=== PATIENT | female | born 1955 | race Caucasian/White ===

== ENCOUNTER → 2018-01-20 | Outpatient (CLI) | payer OTHER ==
[2015-02-13 11:01] VITALS: BMI 20.1
[~2018-01-20] MED LIST: ALPR-448; BUPR1PAT9; BUPR1PAT9 TD; CEPH-13 PO; CLONAZEPAM; COPAXONE; CYCL1DRO6; DRON5CAP15 PO; FING0.5C2 PO; FOSAMAX; GABA-547 PO; GABA-551; GABA-551 PO; HYDR-393; HYDR-393 PO; IMITREX; LACT1CAP64 PO; LEV125 PO; LEVO50TA86 PO; LOPE2CAP88 PO; MELA10CA PO; NEURONTIN; ONDA4TAB PO; PHEN100T27 PO; PROG100C PO; ROPI1TAB36 PO; ROPINIROLE PO; ST JOHN S WORT IO; ST.300CA17 PO; SUMA100T33; SUMA100T33 PO; TERI14TA PO; TOPAMAX; TOPI-28 PO; VANC125C10 GT; VICODIN; VITEX PO; [UNRECOGNIZED DRUG - CODE]; [UNRECOGNIZED DRUG - OTHER] PO
--- NOTE | 2018-01-20 11:34 | RADIOLOGY IMAGING REPORT ---
FACILITY: [facility] [place] PATIENT NAME: Alexa Huerta : 1955 MR: [id number] V: [id number] EXAM DATE: ORDERING PHYSICIAN: HANH HOBSON TECHNOLOGIST: Location: [facility] Patient: Alexa Huerta : 1955 Visit/Account:[id number] Date of Sevice: 01/20/2018 DEXA Scan HISTORY: Osteoporosis. COMPARISON: 01/18/2016. LUMBAR SPINE: The bone mineral density (BMD) measured from L1-L4 correlates with a Z-score 1.2 and a T-score of -1 .3 which is osteopenia as defined by the World Health Organization. The corresponding risk of fractu re in the lumbar spine is increased compared with a young adult reference population. This value has increased by 8.8 % since the prior study. More than 5% change is considered significant. HIP: Bone mineral density (BMD) measured in the left total hip region correlates with a Z-score -1.1 and a T-score of -2.2 which is osteopenia as defined by the World Health Organization. The corresponding risk of fracture in the hip is increased compared with a young adult reference population. This value has increased by 2.7 % since the prior study. More than 5% change is considered significant. Bone mineral density (BMD) measured in the Femoral Neck region measures 0.731 g/cm2. IMPRESSION: 1. Lumbar spine: Osteopenia. Lumbar bone mineral density has significantly increased by 8.8%. 2. Left Total Hip: Osteopenia.. No significant change 3. Femoral Neck: Bone Mineral Density is 0.731 g/cm2 The next DEXA scan of this patient should include the following sites: L1-L4 and the left hip. FRAX? WHO Fracture Risk Assessment Tool link: <http://www.shef.ac.uk/FRAX/tool.jsp?locationValue=9> PLEASE NOTE: 1) The World Health Organization defines low BMD as follows: T-score Normal > -1 Osteopenia < -1 and > -2.5 Osteoporosis < -2.5 without fractures Established osteoporosis < -2.5 with fractures 2) In general, you may wish to consider: Diagnosis Treatment Follow-up DEXA Normal BMD Prevention 2-3 years Osteopenia Prevention/therapy 1-2 years Osteoporosis Therapy Yearly 3) Fracture risk estimated from the T-score is more accurate for vertebral fractures (often spontane ous) than for hip fractures. Report Dictated By: Curt Mondragon MD at 01/20/2018 11:27 AM Report E-Signed By: Curt Mondragon MD at 01/20/2018 11:31 AM WSN:[id number]
--- NOTE | 2018-01-20 11:55 | RADIOLOGY IMAGING REPORT ---
FACILITY: [facility] [place] PATIENT NAME: COREY GAO : [id number] MR: [id number] V: [id number] EXAM DATE: ORDERING PHYSICIAN: HANH HOBSON TECHNOLOGIST: Carmela Mei PROCEDURE:BILATERAL DIGITAL SCREENING MAMMOGRAM WITH CAD ASSISTED INTERPRETATION & 3D TOMOSYNTHESIS COMPARISON:Prior mammograms 01/01/16 INDICATIONS:screening FINDINGS: Moderately dense fibroglandular tissue is seen throughout the breasts. The parenchymal pattern has remained stable allowing for difference in mammographic technique & patient positioning. There is no evidence of malignant appearing mass, malignant appearing calcifications or other secondary sign of malignancy in either breast. DIAGNOSTIC CATEGORY 1--NEGATIVE. RECOMMENDATIONS: ROUTINE MAMMOGRAM AND CLINICAL EVALUATION. IMPRESSION: BIRADS 1: Negative No significant abnormality is seen. Dictated by: Felicity Peace M.D. on 01/20/2018 at 10:49 Transcribed by: TERA on 01/20/2018 at 10:56 Approved by: Felicity Peace M.D. on 01/20/2018 at 11:54 [facility]
--- NOTE | 2018-01-20 13:47 | RADIOLOGY IMAGING REPORT ---
FACILITY: [facility] [place] PATIENT NAME: Alexa Huerta : 1955 MR: [id number] V: [id number] EXAM DATE: ORDERING PHYSICIAN: HANH HOBSON TECHNOLOGIST: Location: [facility] Patient: Alexa Huerta : 1955 Visit/Account:[id number] Date of Sevice: 01/20/2018 Exam type: SOFT TISSUE HEAD NECK History: Past history of thyroidectomy for papillary carcinoma Comparison: None. Findings: The patient is status post thyroidectomy. No abnormal mass lesions or abnormal lymphadenopathy is id entified in either the right or left side of the neck. If tumor recurrence or pathologic adenopathy remains of strong clinical concern a CT of the neck with contrast is recommended for further evaluati on IMPRESSION: 1. No abnormal mass lesion or pathologic-appearing adenopathy identified in the neck. If tumor recu rrence or pathologic adenopathy remains of strong clinical concern CT of the neck with contrast is re commended for further evaluation Report Dictated By: Felicity Peace MD at 01/20/2018 1:38 PM Report E-Signed By: Felicity Peace MD at 01/20/2018 1:42 PM WSN:[email or web address]
== END ==
LOC: MAMO 00:44
PROVIDERS: ATTEND Nurse Practitioner Family
DX: Z12.31 Encounter for screening mammogram for malignant neoplasm of breast (principal); M81.0 Age-related osteoporosis without current pathological fracture; C73 Malignant neoplasm of thyroid gland; M85.80 Other specified disorders of bone density and structure, unspecified site
CPT/HCPCS: 76536; 77063; 77067; 77080

== ENCOUNTER 2018-01-24 10:48 | Emergency (ER) | payer OTHER ==
[2015-02-13 11:01] VITALS: Wt 63.5 kg
--- NOTE | 2018-01-24 10:58 | ER Report ---
History and Physical Time Seen By MD: 10:57 HPI/ROS CHIEF COMPLAINT: Left eye pain HISTORY OF PRESENT ILLNESS: 62-year-old female patient presents to emergency room with complaint of left eye pain. Patient states that this started this morning when she woke up. She states that she was having so much pain that she had a hard time opening her eye. She states since then she's noticed that her eyes really sensitive to light, she states the left eye is very blurry as well. She states that she has not taken any medication for this. She denies any previous injury to the eye. She states that she typically sees the fire alarm technician at [facility]. REVIEW OF SYSTEMS: Respiratory: No cough, no dyspnea. Cardiovascular: No chest pain, no palpitations. Gastrointestinal: No vomiting, no abdominal pain. Musculoskeletal: Left thumb nodule with discomfort Allergies: Coded Allergies: Sulfa (Sulfonamide Antibiotics) (Verified Allergy, Severe, Facial/lip swelling, 02/13/15) sulfamethoxazole (Unverified Allergy, Unknown, 05/11/15) trimethoprim (Unverified Allergy, Unknown, 05/11/15) Uncoded Allergies: ANTI DEPRESSANT (Allergy, Mild, UNKNOWN, 03/14/14) Home Meds Reported Medications Levothyroxine Sodium (LEVOTHYROXINE SODIUM) 50 Mcg Tablet, 2 TAB PO QDAY, TAB 06/18/16 Teriflunomide (AUBAGIO) 14 Mg Tablet, 1 TAB PO QODAY 06/18/16 Gabapentin (GABAPENTIN) 400 Mg Capsule, 4 CAP PO HS, CAPSULE 06/18/16 Gabapentin (GABAPENTIN) 400 Mg Capsule, 1 CAP PO TID, CAPSULE 06/18/16 Acetaminophen/Hydrocodone (HYDROCODON-ACETAMINOPHN 10-325) 1 Each Tab, 1 EACH PO Q6H, TAB 05/11/15 Ropinirole Hcl (ROPINIROLE HCL) 1 Mg Tablet, 1 TAB PO TID 05/11/15 Buprenorphine (BUTRANS) 1 Each Patch.tdwk, 1 EACH TD QWEEK 02/05/15 Topiramate (TOPIRAMATE) 100 Mg Tablet, 1 TAB PO HS, #30 09/27/14 Dronabinol (DRONABINOL) 5 Mg Capsule, 1 CAP PO DAILY 09/27/14 Discontinued Reported Medications Sumatriptan Succinate (SUMATRIPTAN SUCCINATE) 100 Mg Tablet, 1 TAB PO PRN Y for PAIN 06/18/16 Progesterone,Micronized (PROGESTERONE) 100 Mg Capsule, 1 TAB PO DAILY, CAPSULE 06/18/16 Alprazolam 0.5 Mg Tab (ALPRAZOLAM 0.5 MG TAB) 0.5 Mg Tablet, 0.5 Y for ANXIETY, #0 09/27/14 Past Medical/Surgical History Patient has a past medical history of MS, fibromyalgia, migraines, arthritis, back pain, bilateral cataracts, depression, thyroid cancer. Patient has surgical history of thyroidectomy, cataract surgery, steroid injections. Reviewed Nurses Notes: Yes Hx Smoking: No Smoking Status: Never Smoker Exposure to Second Hand Smoke?: No Hx Substance Use Disorder: No Hx Alcohol Use: No Constitutional Vital Sign - Last 24 Hours 01/24/18 01/24/18 10:57 11:34 Temp 98.8 98.8 Pulse 74 74 Resp 16 16 B/P (MAP) 146/85 118/86 (97) Pulse Ox 94 97 O2 Delivery Room Air Physical Exam General Appearance: The patient is alert, has no immediate need for airway protection and no current signs of toxicity. Eyes: Pupils equal and round no injection. Extraocular movements intact. Loc- Pen was used to measure pressure and pressure was 15 in both eyes. Fluorescein exam was done of left eye and noticed that the patient has a C-shaped corneal abrasion just over her pupil. Respiratory: Chest is non tender, lungs are clear to auscultation. Cardiac: regular rate and rhythm Gastrointestinal: Abdomen is soft and non tender, no masses, bowel sounds normal. Musculoskeletal: Neck: Neck is supple and non tender. Patient has nodule located at the DIP joint of the left first finger, it is tender to the touch. There is no erythema noted. Extremities have full range of motion and are non tender. Skin: No rashes or lesions. DIFFERENTIAL DIAGNOSIS: After history and physical exam differential diagnosis was considered for corneal abrasion, acute angle glaucoma, iritis, tendinitis, cyst on tendon. Medical Decision Making ED Course/Re-evaluation ED Course Patient was admitted to an exam room, history and physical were obtained. Differential diagnoses were considered. On examination lungs are clear, heart is regular, patient had significant amount of difficulty with opening her eye, she had photophobia. Loc-Pen was used to collect intraocular pressure, pressures were 15 bilaterally. Fluorescein exam was done which showed a C- shaped abrasion over the pupil of the left eye. I discussed the findings with the patient. We'll go ahead and place her on antibiotic eyedrops with steroid, to help with the discomfort and help prevent infection. I suspect she will be healed up in the next several days. I would like her to follow-up with her fire alarm technician in the next 24-48 hours. Patient verbalized understanding and agreement with plan. Decision to Disposition Date: Jan 24, 2018 Decision to Disposition Time: 11:23 Depart Departure Latest Vital Signs Vital Signs Date Time Temp Pulse Resp B/P (MAP) Pulse Ox O2 Delivery O2 Flow Rate FiO2 01/24/18 11:34 98.8 74 16 118/86 (97) 97 01/24/18 10:57 Room Air Impression: Primary Impression: Cornea abrasion Condition: Improved Disposition: HOME OR SELF-CARE Referrals: HANH HOBSON (PCP) Patient Instructions: Corneal Abrasion (ED) Additional Instructions: Instill the eye drops; 2 drops four times a day. Follow up with your fire alarm technician tomorrow. Continue with current medications. I believe that this likely occurred last night while you were sleeping. Return to the ER if condition worsens. Problem Qualifiers Primary Impression: Cornea abrasion Encounter type: initial encounter Laterality: left Qualified Codes: S05.02XA - Injury of conjunctiva and corneal abrasion without foreign body, left eye, initial encounter SHANTHI LOERA Jan 24, 2018 10:58
[2018-01-24] MEDS ORDERED: PROPARACAINE 0.5% OP 15ML BTL OS ONE (11:05)
[2018-01-24] MEDS ORDERED: FLUORESCEIN SOD 1 MG 1 EA STRP OS ONE (11:05)
[2018-01-24] MEDS ORDERED: TOBRAMYCIN/DEX OP SUSP 2.5 ML OS ONE (11:20)
[2018-01-24 11:34] VITALS: BP 118/86
== END 2018-01-24 11:39 | disposition home or self-care (01) ==
LOC: ER 11:12
DX: S05.02XA Injury of conjunctiva and corneal abrasion without foreign body, left eye, initial encounter (principal)
CPT/HCPCS: 99283

== ENCOUNTER → 2018-02-18 | Outpatient (CLI) | payer OTHER ==
[2015-02-13 11:01] VITALS: BMI 20.1
[~2018-02-18] MED LIST changes: +BIOT1CAP PO; +CALC-965 PO; +ECHI80CA2 PO; +GLUC-198 PO; +SENN-187 PO; +UBIQ100C3 PO
--- NOTE | 2018-02-18 14:26 | RADIOLOGY IMAGING REPORT ---
FACILITY: [facility] PATIENT NAME: Alexa Huerta : 1955 MR: [id number] V: [id number] EXAM DATE: ORDERING PHYSICIAN: HANH HOBSON TECHNOLOGIST: Location: [facility] Patient: Alexa Huerta : 1955 Visit/Account:[id number] Date of Sevice: 02/18/2018 ADDENDUM #1 Bladder volume 116 mL Postvoid residual 11 mL Report Dictated By: Dylan Yao at 02/19/2018 4:55 PM Report E-Signed By: Dylan Yao at 02/19/2018 4:56 PM ORIGINAL REPORT KIDNEYS HISTORY: Urinary frequency COMPARISON: None. FINDINGS: Kidneys: Right kidney- 10.6 x 3.5 x 5.1 cm with normal parenchymal thickness and echogenicity. 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 Left kidney- 10.0 x 4.0 x 5.4 cm with normal parenchymal thickness and echogenicity. No ultrasound e vident renal mass lesion or stone. Uniform and symmetric blood flow in each kidney by Doppler ultrasound. Hydronephrosis: None. Bladder: Morphologically unremarkable. Bilateral ureteric jets visualized. . Abdominal aorta and IVC: Patent by Doppler ultrasound. IMPRESSION: Renal ultrasound is within normal limits. There is a 1.2 cm small hyperechoic nodule within the right mid pole cortex. 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
== END ==
LOC: US 00:57
PROVIDERS: ATTEND Nurse Practitioner Family
DX: N28.89 Other specified disorders of kidney and ureter (principal)
CPT/HCPCS: 76705

== ENCOUNTER 2018-03-16 15:04 | Outpatient (RCR) | payer OTHER ==
[2015-02-13 11:01] VITALS: BMI 20.1
[2018-03-17] MEDS ORDERED: IOPAMIDOL 76% 75 ML INFUS BTL 75 ML ONE (16:06)
--- NOTE | 2018-03-17 17:19 | RADIOLOGY IMAGING REPORT ---
FACILITY: [facility] PATIENT NAME: Alexa Huerta : 1955 MR: [id number] V: [id number] EXAM DATE: ORDERING PHYSICIAN: HANH HOBSON TECHNOLOGIST: Location: [facility] Patient: Alexa Huerta : 1955 Visit/Account:[id number] Date of Sevice: 03/17/2018 CT ABDOMEN WITH IV CONTRAST CLINICAL INFORMATION: Abdomen pain, epigastric pain TECHNIQUE: Axial CT images were obtained through the abdomen during injection of nonionic iodinated intravenous contrast. Reformatted coronal and sagittal images were also obtained. Dose Lowering Tech [place] One of the following dose optimization techniques was utilized in the performance of this exam: Autom ated exposure control; adjustment of the mA and/or kV according to the patient's size; or use of an i terative reconstruction technique. Specific details can be referenced in the facility's radiology C T exam operational policy. CONTRAST: 75 mL of Isovue 370 IV contrast. COMPARISON: February 12, 2015. FINDINGS: Lower lung wiley: Limited views lower lung field are unremarkable. Liver: Liver is markedly enlarged and incompletely imaged on this CT of the abdomen extending well in to the pelvis. This appears to be increased when compared to the prior study. Mild periportal edema is noted although to lesser extent than on the prior examination. Biliary: Gallbladder appears unremarkable as well as the intra and extra hepatic biliary system. Pancreas: Pancreatic head appears small Spleen: Spleen is borderline enlarged measuring 12.5 cm in length previously measuring 14.4 cm Adrenal glands: Negative Kidneys / retroperitoneum: Small subcentimeter hypodensities in the kidneys are too small to characte rize. There appears to be tiny punctate nonobstructing calculus in the lower pole the left kidney Bowel / peritoneum / mesenteries: There is thickening of the distal esophagus Lymph node assessment: No pathologic adenopathy identified. Vessels: The IVC appears dilated measuring up to 4.1 cm as it enters the liver adjacent to the portal vein. This appears slightly more prominent when compared to the prior study. The portal vein appears mildly dilated at 15 mm in diameter. The splenic vein also appears prominent measuring up to 1.3 cm. There also appear to be collateral vessels in the anterior upper abdomen. . Mild atherosclerotic calcification seen throughout a nonaneurysmal abdominal aorta and branches. Musculoskeletal / Body wall: No acute or aggressive osseous abnormality. IMPRESSION: 1. The liver is markedly enlarged. There is dilatation of the inferior vena cava suggesting passive hepatic congestion amongst other etiologies. Dilatation of the main portal vein and splenic vein and anterior abdominal collateral vessels suggest ing portal hypertension Borderline splenomegaly Report Dictated By: Felicity Peace MD at 03/17/2018 4:57 PM Report E-Signed By: Felciity Peace MD at 03/17/2018 5:15 PM WSN:[email or web address]
== END 2018-03-17 18:00 | disposition home or self-care (01) ==
LOC: CT 15:04 → EDSTATUS 03-17 15:03 → CT 03-17 18:00
PROVIDERS: ATTEND Nurse Practitioner Family
DX: K29.00 Acute gastritis without bleeding (principal); R10.13 Epigastric pain; R16.0 Hepatomegaly, not elsewhere classified
CPT/HCPCS: 36415; 74160; 82565; Q9967

== ENCOUNTER 2018-03-19 18:04 | Emergency (ER) | payer OTHER ==
[2015-02-13 11:01] VITALS: Wt 63.5 kg
[2018-03-19] MEDS ORDERED: LORA-630 PO (18:24)
[2018-03-19] MEDS ORDERED: HYDR-393 PO (18:24)
--- NOTE | 2018-03-19 18:35 | ER Report ---
History and Physical Time Seen By MD: 18:35 Hx. of Stated Complaint: REFERRED BY DR MACDONALD FOLLOWING CT SCAN. STATES THAT SHE HAS HAD ABDOMINAL PAIN AND NAUSEA SINCE THE END OF FEBRUARY. DIARRHEA THAT BEGAN THIS AM. HPI/ROS CHIEF COMPLAINT: concern for abnormalities on liver on CT scan and labs. HISTORY OF PRESENT ILLNESS: This is a 62 year old female. She was sent to the ER by her primary care provider, Hanh Macdonald, because of some abnormalities of labs and CT scan. She has been having abdominal pain, diffuse, as well as developing diarrhea today. She has 3 episodes of watery diarrhea. Has fatigue as well, but has fatigue chronically from her MS. She has hepatomegaly on CT with congestion of the liver. She was going to be getting a ultrasound next week. She takes the medicine Aubagio for MS and this does have some risk of liver problems. REVIEW OF SYSTEMS: Respiratory: No cough, no dyspnea. Cardiovascular: No chest pain, no palpitations. Gastrointestinal: As above. Genitourinary: Chronic problems with urination from MS, unchanged. Allergies: Coded Allergies: Sulfa (Sulfonamide Antibiotics) (Verified Allergy, Severe, Facial/lip swelling, 03/19/18) sulfamethoxazole (Unverified Allergy, Unknown, 03/19/18) trimethoprim (Unverified Allergy, Unknown, 03/19/18) Uncoded Allergies: ANTI DEPRESSANT (Allergy, Mild, UNKNOWN, 03/14/14) Home Meds Reported Medications Acetaminophen/Hydrocodone (HYDROCODON-ACETAMINOPHN 10-325) 1 Each Tab, 1 EACH PO Q6H, TAB 03/19/18 Lorazepam (LORAZEPAM) 0.5 Mg Tablet, 0.25 MG PO QHS 03/19/18 Biotin (BIOTIN) Unknown Strength Capsule, PO QDAY 02/09/18 Glucosa Davies 2KCL/Chondroitin Davies (GLUCOSAMINE & CHONDROITIN CAP) 1 Each Capsule, PO QDAY, CAPSULE 02/09/18 Calcium Carbonate/Vitamin D3 (CALCIUM 1,000 + D3 CAPLET) 1 Each Tablet, 1 EACH PO QDAY 02/09/18 Levothyroxine Sodium (LEVOTHYROXINE SODIUM) 50 Mcg Tablet, 2 TAB PO QDAY, TAB 06/18/16 Gabapentin (GABAPENTIN) 400 Mg Capsule, 4 CAP PO HS, CAPSULE 06/18/16 Gabapentin (GABAPENTIN) 400 Mg Capsule, 1 CAP PO TID, CAPSULE 06/18/16 Buprenorphine (BUTRANS) 1 Each Patch.tdwk, 1 EACH TD QWEEK 02/05/15 Topiramate (TOPIRAMATE) 100 Mg Tablet, 1 TAB PO HS, #30 09/27/14 Discontinued Reported Medications Sennosides/Docusate Sodium (STOOL SOFTENER TABLET) 1 Each Tablet, 1 EACH PO QDAY 02/09/18 Ubiquinol (UBIQUINOL) Unknown Strength Capsule, PO QDAY, CAPSULE 02/09/18 Echinacea Purpurea Root (ECHINACEA) Unknown Strength Capsule, PO QDAY, CAPSULE 02/09/18 Teriflunomide (AUBAGIO) 14 Mg Tablet, 1 TAB PO QODAY 06/18/16 Acetaminophen/Hydrocodone (HYDROCODON-ACETAMINOPHN 10-325) 1 Each Tab, 1 EACH PO Q6H, TAB 05/11/15 Ropinirole Hcl (ROPINIROLE HCL) 1 Mg Tablet, 3.5 TAB PO QDAY 05/11/15 Dronabinol (DRONABINOL) 5 Mg Capsule, 2 CAP PO DAILY 09/27/14 Reviewed Nurses Notes: Yes Hx Smoking: No Smoking Status: Never Smoker Exposure to Second Hand Smoke?: No Hx Substance Use Disorder: No Hx Alcohol Use: No Constitutional Vital Sign - Last 24 Hours 03/19/18 03/19/18 03/19/18 03/19/18 18:04 18:18 18:18 18:19 Temp 98.4 Pulse 116 72 112 Resp 18 B/P (MAP) 156/80 156/80 (105) Pulse Ox 93 98 94 O2 Delivery Room Air 03/19/18 03/19/18 03/19/18 03/19/18 18:34 18:45 18:49 19:04 Pulse 118 105 108 B/P (MAP) 148/104 (119) Pulse Ox 93 96 95 03/19/18 03/19/18 03/19/18 03/19/18 19:15 19:19 19:30 19:34 Pulse 108 ??? B/P (MAP) 133/76 (95) 123/83 (96) Pulse Ox 93 93 03/19/18 03/19/18 03/19/18 03/19/18 19:45 20:00 20:15 20:20 Pulse 67 B/P (MAP) 145/85 (105) 143/80 (101) 133/77 (95) Pulse Ox 95 03/19/18 03/19/18 20:30 20:35 Pulse 67 B/P (MAP) 140/84 (102) Pulse Ox 95 Physical Exam General Appearance: The patient is alert. No acute distress. Eyes: Pupils are equal, round. No pallor, injection or icterus. ENT: Mucous membranes are moist. Neck: Supple and non tender. No lymphadenopathy. Respiratory: Lungs are clear to auscultation. Cardiovascular: Regular rate and rhythm. No murmurs, gallops or rubs. Gastrointestinal: Abdomen is soft, but diffuse discomfort with palpation, seeming worse over umbilical area and up to the right. Nondistended. No rebound or guarding. Hepatomegaly. Normal active bowel sounds. Neurological: Alert and oriented x3. Skin: Warm and dry. DIFFERENTIAL DIAGNOSIS: After history and physical exam, differential diagnosis was considered for abdominal pain, diarrhea, and abnormalities of liver on CT scan and blood tests Medical Decision Making Data Points Result Diagram: 03/19/18 1829 03/19/18 182 Laboratory Hematology Test 03/19/18 18:08 03/19/18 18:29 Urine Color Yellow Urine Clarity Clear Urine pH 8.0 pH (4.8-9.5) Urine Specific Webb 1.017 Urine Protein Negative mg/dL (NEGATIVE) Urine Glucose (UA) Negative mg/dL (NEGATIVE) Urine Ketones Negative mg/dL (NEGATIVE) Urine Blood Negative (NEGATIVE) Urine Nitrite Negative (NEGATIVE) Urine Bilirubin Negative (NEGATIVE) Urine Urobilinogen Negative mg/dL (0.2-1.9) Urine Leukocyte Esterase Negative (NEGATIVE) Urine RBC None /HPF (0-2/HPF) Urine WBC <1 /HPF (0-5/HPF) Urine Squamous Epithelial Cells Few /LPF (</=FEW) Urine Bacteria Negative /HPF (NONE-FEW) Urine Mucus None /HPF (NONE-FEW) Red Blood Count 4.56 M/uL (4.17-5.56) Mean Corpuscular Volume 85.9 fL (80.0-96.0) Mean Corpuscular Hemoglobin 30.1 pg (26.0-33.0) Mean Corpuscular Hemoglobin Concent 35.1 g/dL (32.0-36.0) Red Cell Distribution Width 14.5 % (11.5-14.5) Mean Platelet Volume 9.5 fL (7.2-11.1) Neutrophils (%) (Auto) 91.0 % (39.4-72.5) Lymphocytes (%) (Auto) 4.6 % (17.6-49.6) Monocytes (%) (Auto) 2.7 % (4.1-12.4) Eosinophils (%) (Auto) 1.1 % (0.4-6.7) Basophils (%) (Auto) 0.6 % (0.3-1.4) Nucleated RBC Relative Count (auto) 0.0 /100WBC Neutrophils # (Auto) 6.7 K/uL (2.0-7.4) Lymphocytes # (Auto) 0.3 K/uL (1.3-3.6) Monocytes # (Auto) 0.2 K/uL (0.3-1.0) Eosinophils # (Auto) 0.1 K/uL (0.0-0.5) Basophils # (Auto) 0.0 K/uL (0.0-0.1) Nucleated RBC Absolute Count (auto) 0.00 K/uL Sodium Level 139 mmol/L (137-145) Potassium Level 3.7 mmol/L (3.5-5.0) Chloride Level 104 mmol/L (98-107) Carbon Dioxide Level 25 mmol/L (22-31) Blood Urea Nitrogen 16 mg/dl (7-18) Creatinine 0.80 mg/dl (0.52-1.04) Glomerular Filtration Rate Calc > 60.0 Random Glucose 96 mg/dl (75-110) Calcium Level 8.7 mg/dl (8.4-10.2) Total Bilirubin 0.7 mg/dl (0.2-1.3) Aspartate Amino Transf (AST/SGOT) 32 U/L (0-35) Alanine Aminotransferase (ALT/SGPT) 26 U/L (0-56) Alkaline Phosphatase 62 U/L (0-126) Total Protein 7.1 g/dl (6.3-8.2) Albumin 4.2 g/dl (3.5-5.0) Amylase Level 88 U/L (0-110) Lipase 89 U/L (23-300) Chemistry Test 03/19/18 18:08 03/19/18 18:29 Urine Color Yellow Urine Clarity Clear Urine pH 8.0 pH (4.8-9.5) Urine Specific Webb 1.017 Urine Protein Negative mg/dL (NEGATIVE) Urine Glucose (UA) Negative mg/dL (NEGATIVE) Urine Ketones Negative mg/dL (NEGATIVE) Urine Blood Negative (NEGATIVE) Urine Nitrite Negative (NEGATIVE) Urine Bilirubin Negative (NEGATIVE) Urine Urobilinogen Negative mg/dL (0.2-1.9) Urine Leukocyte Esterase Negative (NEGATIVE) Urine RBC None /HPF (0-2/HPF) Urine WBC <1 /HPF (0-5/HPF) Urine Squamous Epithelial Cells Few /LPF (</=FEW) Urine Bacteria Negative /HPF (NONE-FEW) Urine Mucus None /HPF (NONE-FEW) White Blood Count 7.4 k/uL (4.5-11.0) Red Blood Count 4.56 M/uL (4.17-5.56) Hemoglobin 13.8 g/dL (12.0-16.0) Hematocrit 39.2 % (34.0-47.0) Mean Corpuscular Volume 85.9 fL (80.0-96.0) Mean Corpuscular Hemoglobin 30.1 pg (26.0-33.0) Mean Corpuscular Hemoglobin Concent 35.1 g/dL (32.0-36.0) Red Cell Distribution Width 14.5 % (11.5-14.5) Platelet Count 125 K/uL (150-450) Mean Platelet Volume 9.5 fL (7.2-11.1) Neutrophils (%) (Auto) 91.0 % (39.4-72.5) Lymphocytes (%) (Auto) 4.6 % (17.6-49.6) Monocytes (%) (Auto) 2.7 % (4.1-12.4) Eosinophils (%) (Auto) 1.1 % (0.4-6.7) Basophils (%) (Auto) 0.6 % (0.3-1.4) Nucleated RBC Relative Count (auto) 0.0 /100WBC Neutrophils # (Auto) 6.7 K/uL (2.0-7.4) Lymphocytes # (Auto) 0.3 K/uL (1.3-3.6) Monocytes # (Auto) 0.2 K/uL (0.3-1.0) Eosinophils # (Auto) 0.1 K/uL (0.0-0.5) Basophils # (Auto) 0.0 K/uL (0.0-0.1) Nucleated RBC Absolute Count (auto) 0.00 K/uL Glomerular Filtration Rate Calc > 60.0 Calcium Level 8.7 mg/dl (8.4-10.2) Total Bilirubin 0.7 mg/dl (0.2-1.3) Aspartate Amino Transf (AST/SGOT) 32 U/L (0-35) Alanine Aminotransferase (ALT/SGPT) 26 U/L (0-56) Alkaline Phosphatase 62 U/L (0-126) Total Protein 7.1 g/dl (6.3-8.2) Albumin 4.2 g/dl (3.5-5.0) Amylase Level 88 U/L (0-110) Lipase 89 U/L (23-300) Urinalysis Test 03/19/18 18:08 Urine Color Yellow Urine Clarity Clear Urine pH 8.0 pH (4.8-9.5) Urine Specific Webb 1.017 Urine Protein Negative mg/dL (NEGATIVE) Urine Glucose (UA) Negative mg/dL (NEGATIVE) Urine Ketones Negative mg/dL (NEGATIVE) Urine Blood Negative (NEGATIVE) Urine Nitrite Negative (NEGATIVE) Urine Bilirubin Negative (NEGATIVE) Urine Urobilinogen Negative mg/dL (0.2-1.9) Urine Leukocyte Esterase Negative (NEGATIVE) Urine RBC None /HPF (0-2/HPF) Urine WBC <1 /HPF (0-5/HPF) Urine Squamous Epithelial Cells Few /LPF (</=FEW) Urine Bacteria Negative /HPF (NONE-FEW) Urine Mucus None /HPF (NONE-FEW) EKG/Imaging Imaging EXAMINATION: Limited right upper quadrant ultrasound Additional Pertinent history: Elevated liver function tests. Abdominal pain. COMPARISON STUDIES: CT of the abdomen pelvis on 03/17/2018. FINDINGS: Gallbladder: no stones, sludge, wall thickening or pericholecystic fluid. Negative ultrasound House sign. Liver: No focal abnormality. Liver surface appears smooth. Portal vein is patent. No ascites. Common duct: normal 3.7 mm. Pancreas: Normal Right kidney: The superior pole area of the right kidney does show a hyperechoic nodule measuring 8 mm consistent with angiomyolipoma. This is seen on the CT scan. Right kidney is otherwise unremarkable. Proximal IVC/Aorta: negative IMPRESSION: 1. No acute abnormality. The gallbladder and biliary system is unremarkable. 2. 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 Report Dictated By: Nate De La Torre at 03/19/2018 7:49 PM ED Course/Re-evaluation Clinical Indication for ER IV: IV Access ED Course Labs are unremarkable other than chronic thrombocytopenia. Ultrasound of gallbladder negative. Urinalysis normal. Discussed with patient and then called and discussed with Hanh Macdonald. Patient to rest and increase fluids over the weekend and then follow-up with Hanh on Thursday. Decision to Disposition Date: Mar 19, 2018 Decision to Disposition Time: 20:31 Depart Departure Latest Vital Signs Vital Signs Date Time Temp Pulse Resp B/P (MAP) Pulse Ox O2 Delivery O2 Flow Rate FiO2 03/19/18 20:35 67 95 03/19/18 20:30 140/84 (102) 03/19/18 18:18 98.4 18 Room Air Impression: Primary Impression: Diarrhea Additional Impression: Hepatomegaly Condition: Improved Disposition: HOME OR SELF-CARE Referrals: HANH MACDONALD (PCP) Patient Instructions: Acute Diarrhea (ED) Additional Instructions: Rest and increase fluid intake over the weekend. Follow-up with Hanh Macdonald on Thursday. If you need to, you can use some Imodium to help with diarrhea. Problem Qualifiers Primary Impression: Diarrhea Diarrhea type: unspecified type Qualified Codes: R19.7 - Diarrhea, unspecified GORDON KC MD Mar 19, 2018 18:35
[2018-03-19 18:57] LABS: PLATELET COUNT, AUTOMATED 125 K/uL (150-450)
--- NOTE | 2018-03-19 19:57 | RADIOLOGY IMAGING REPORT ---
FACILITY: [facility] [place] PATIENT NAME: Alexa Huerta : 1955 MR: [id number] V: [id number] EXAM DATE: ORDERING PHYSICIAN: GORDON KC TECHNOLOGIST: Location: [facility] Patient: Alexa Huerta : 1955 Visit/Account:[id number] Date of Sevice: 03/19/2018 EXAMINATION: Limited right upper quadrant ultrasound Additional Pertinent history: Elevated liver function tests. Abdominal pain. COMPARISON STUDIES: CT of the abdomen pelvis on 03/17/2018. FINDINGS: Gallbladder: no stones, sludge, wall thickening or pericholecystic fluid. Negative ultrasound House sign. Liver: No focal abnormality. Liver surface appears smooth. Portal vein is patent. No ascites. Common duct: normal 3.7 mm. Pancreas: Normal Right kidney: The superior pole area of the right kidney does show a hyperechoic nodule measuring 8 m m consistent with angiomyolipoma. This is seen on the CT scan. Right kidney is otherwise unremarkable . Proximal IVC/Aorta: negative IMPRESSION: 1. No acute abnormality. The gallbladder and biliary system is unremarkable. 2. 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 Report Dictated By: Nate De La Torre at 03/19/2018 7:49 PM Report E-Signed By: Nate De La Torre at 03/19/2018 7:53 PM WSN:[id number]
[2018-03-19 20:30] VITALS: BP 140/84
== END 2018-03-19 20:43 | disposition home or self-care (01) ==
LOC: ER 18:11
DX: R16.0 Hepatomegaly, not elsewhere classified (principal); R19.7 Diarrhea, unspecified
CPT/HCPCS: 76705; 81001; 82040; 82150; 82247; 82310; 82374; 82435; 82565; 82947; 82977; 83690; 84075; 84132; 84155; 84295; 84450; 84460; 84520; 85025; 99284

== ENCOUNTER → 2018-03-22 | Outpatient (CLI) | payer OTHER ==
[2015-02-13 11:01] VITALS: BMI 20.1
[~2018-03-22] MED LIST changes: +LORA-630 PO
--- NOTE | 2018-03-23 09:18 | RADIOLOGY IMAGING REPORT ---
FACILITY: [facility] PATIENT NAME: COREY GAO : [id number] MR: [id number] V: [id number] EXAM DATE: [id number] ORDERING PHYSICIAN: HANH HOBSON TECHNOLOGIST: William Zhao RDMS, RDCS EXAMINATION:ECHOCARDIOGRAM Patients This study has been submitted to the [facility] for interpretation. A complete report will be faxed to your provider's office within 24 hours. Providers The images and completed report will be available to you electronically in the EMR ([employer]ivo). If you would like to view the results in the PACS system (), the report will be located under the DOCUMENTS button at the top of the screen. If you do not receive a report within 24 hours, please contact the Medical Records department at [phone] during normal business hours or the Radiology department at [phone] after 5pm and on weekends. Dictated by: Roly BARNARD) on 03/22/2018 at 14:20 Approved by: Roly BARNARD) on 03/22/2018 at 14:20 [facility]
== END ==
LOC: US 07:05
PROVIDERS: ATTEND Nurse Practitioner Family
DX: I07.1 Rheumatic tricuspid insufficiency (principal)
CPT/HCPCS: 93306

== ENCOUNTER → 2018-04-08 | Outpatient (CLI) | payer OTHER ==
[2015-02-13 11:01] VITALS: BMI 20.1
[2018-04-08 15:43] LABS: INR 1.01
== END ==
LOC: LAB 15:06
PROVIDERS: ATTEND Physician Assistant Medical
DX: R16.0 Hepatomegaly, not elsewhere classified (principal)
CPT/HCPCS: 36415; 82103; 82390; 82728; 83516; 83540; 83550; 85610; 87340

== ENCOUNTER 2018-04-21 02:03 | Day surgery (SDC) | payer OTHER ==
[2015-02-13 11:01] VITALS: Ht 167.6 cm; Wt 60.3 kg
[~2018-04-21] VITALS: Ht 167.6 cm; Wt 60.3 kg
[2018-04-21] VITALS (7 sets, daily range): BP systolic 103–128; BP diastolic 63–75
[~2018-04-21 02:03] MED LIST changes: +DOCU100C49 PO; +HYDR10CA3 PO
[2018-04-21] MEDS ORDERED: LIDOCAINE MPF 1% 5 ML VIAL ONE (07:15)
[2018-04-21] MEDS ORDERED: PROPOFOL EMUL(*) 10MG/ML 20 ML 40 ML ONE (07:15)
--- NOTE | 2018-04-21 08:34 | Short(Outpt) Discharge Summary ---
Discharge Summary Reason for Hosp/Final Diag: (1) Colon cancer screening Status: Chronic Hospital Course & Plan: Colonoscopy completed without problems, normal. Departure Discharge to: Home, Self Care Discharge Instructions Home Meds Reported Medications Docusate Sodium (STOOL SOFTENER) 100 Mg Capsule, 300 MG PO DAILY, CAPSULE 04/15/18 Ropinirole Hcl (ROPINIROLE HCL) 1 Mg Tablet, 3.5 TAB PO DAILY 04/15/18 Hydrocodone Bitartrate (Zohydro ER) 10 Mg Cap.er.12h, 1 CAP PO Q12H 04/15/18 Lorazepam (LORAZEPAM) 0.5 Mg Tablet, 0.25 MG PO QHS 03/19/18 Calcium Carbonate/Vitamin D3 (CALCIUM 1,000 + D3 CAPLET) 1 Each Tablet, 1 EACH PO QDAY 02/09/18 Levothyroxine Sodium (LEVOTHYROXINE SODIUM) 50 Mcg Tablet, 2 TAB PO QDAY, TAB 06/18/16 Gabapentin (GABAPENTIN) 400 Mg Capsule, 4 CAP PO HS, CAPSULE 06/18/16 Gabapentin (GABAPENTIN) 400 Mg Capsule, 1 CAP PO TID, CAPSULE 06/18/16 Buprenorphine (BUTRANS) 1 Each Patch.tdwk, 1 EACH TD QWEEK 02/05/15 Topiramate (TOPIRAMATE) 100 Mg Tablet, 1 TAB PO HS, #30 09/27/14 Discontinued Reported Medications Acetaminophen/Hydrocodone (HYDROCODON-ACETAMINOPHN 10-325) 1 Each Tab, 1 EACH PO Q6H, TAB 03/19/18 Biotin (BIOTIN) Unknown Strength Capsule, PO QDAY 02/09/18 Glucosa Davies 2KCL/Chondroitin Davies (GLUCOSAMINE & CHONDROITIN CAP) 1 Each Capsule, PO QDAY, CAPSULE 02/09/18 Diet: Regular Activity: As Tolerated Special Instructions: Your colonoscopy was completed without any problems and your prep was excellent (Good Job!!). Your colonoscopy was completely normal. I recommend that your next colonoscopy be in 10 years for screening. AVERY DONAHUE MD Apr 21, 2018 08:34
[2018-04-21] MEDS ORDERED: NORMOSOL R SOLN(*) 1000 ML BAG 1,000 ML IV PRN (09:30)
[2018-04-21] MEDS ORDERED: LIDOCAINE/SOD BICARB 8.4% SYR ID ONE (09:30)
== END 2018-04-21 09:40 | disposition home or self-care (01) ==
LOC: OR 02:03
PROVIDERS: ATTEND Surgery
DX: Z12.11 Encounter for screening for malignant neoplasm of colon (principal)
CPT/HCPCS: 00812; 45378; J2001; J2704

== ENCOUNTER → 2018-07-06 | Outpatient (CLI) | payer OTHER ==
[2015-02-13 11:01] VITALS: BMI 20.1
--- NOTE | 2018-07-06 09:30 | RADIOLOGY IMAGING REPORT ---
FACILITY: [facility] [place] PATIENT NAME: Alexa Huerta : 1955 MR: [id number] V: [id number] EXAM DATE: ORDERING PHYSICIAN: VILLA FIELD TECHNOLOGIST: Location: [facility] Patient: Alexa Huerta : 1955 Visit/Account:[id number] Date of Sevice: 07/06/2018 EXAMINATION: Abdominal ultrasound complete HISTORY: Enlarged liver and borderline enlarged spleen on prior exams COMPARISON: CT of the abdomen March 17, 2018 FINDINGS: Gallbladder: No stones, wall thickening, pericholecystic fluid or sonographic House sign. Liver: The liver is markedly enlarged however the length measurement was not obtained as the liver ex tended beyond the single longitudinal view. There is appropriate flow identified in the portal and h epatic veins. Common duct: Normal measuring 6.2 mm. Pancreas: Negative. Spleen: Normal in size and echogenicity measuring borderline enlarged at 13.3 cm in length. Kidneys: Normal in size and echogenicity, the right measures 10.8 cm in length, and the left 9.7 cm. No hydronephrosis. Upper abdominal aorta and IVC: Negative. Ascites: None. IMPRESSION: Hepatomegaly and borderline splenomegaly Report Dictated By: Felicity Peace MD at 07/06/2018 9:20 AM Report E-Signed By: Felicity Peace MD at 07/06/2018 9:27 AM WSN:[id number]
== END ==
LOC: US 00:31
PROVIDERS: ATTEND Nurse Practitioner Family
DX: R16.0 Hepatomegaly, not elsewhere classified (principal); R16.1 Splenomegaly, not elsewhere classified
CPT/HCPCS: 76700

== ENCOUNTER → 2018-08-09 | Outpatient (CLI) | payer OTHER ==
[2015-02-13 11:01] VITALS: BMI 20.1
--- NOTE | 2018-08-10 04:46 | RADIOLOGY IMAGING REPORT ---
FACILITY: [facility] PATIENT NAME: Alexa Huerta : 1955 MR: [id number] V: [id number] EXAM DATE: ORDERING PHYSICIAN: HANH HOBSON TECHNOLOGIST: Location: [facility] Patient: Alexa Huerta : 1955 Visit/Account:[id number] Date of Sevice: 08/09/2018 RIGHT ANKLE: Indication: Chronic pain and swelling. Technique: 3 views were obtained. Comparison: None. Findings: There is no evidence of fracture, subluxation, or other acute deformity. There appears to b e a tiny accessory ossicle near the cuboid bone. There is uniform mineralization of the bony structur es. No periarticular soft tissue abnormalities are identified. IMPRESSION: Negative right ankle. Report Dictated By: Rogelio Pratt MD at 08/10/2018 4:40 AM Report E-Signed By: Rogelio Pratt MD at 08/10/2018 4:42 AM WSN:[id number]
== END ==
LOC: RAD 16:04
PROVIDERS: ATTEND Nurse Practitioner Family
DX: S93.401A Sprain of unspecified ligament of right ankle, initial encounter (principal)

== ENCOUNTER → 2018-12-23 | Outpatient (CLI) | payer OTHER ==
[2015-02-13 11:01] VITALS: BMI 20.1
--- NOTE | 2018-12-23 18:13 | RADIOLOGY IMAGING REPORT ---
FACILITY: [facility] PATIENT NAME: Alexa Hureta : 1955 MR: [id number] V: [id number] EXAM DATE: ORDERING PHYSICIAN: HANH HOBSON TECHNOLOGIST: Location: [facility] Patient: Alexa Huerta : 1955 Visit/Account:[id number] Date of Sevice: 12/23/2018 SHOULDER MIN 2 VIEWS RIGHT COMPARISONS: None. ADDITIONAL PERTINENT HISTORY: Strain of right shoulder. FINDINGS: Osseous structures: Mild subchondral sclerosis and osteophyte formation involving the inferior medial aspects of the glenoid. No bony fractures. Joint spaces: Mild joint space narrowing involving the inferior medial aspects of the right glenohume ral joint. Calcified loose bodies within the axillary recess. Surrounding soft tissues: Negative. IMPRESSION: 1. Osteoarthritic changes about the right shoulder with findings concerning for ossified loose carlie s within the axillary recess. 2. No acute appearing bony abnormalities. Report Dictated By: Jens Magdaleno MD at 12/23/2018 6:08 PM Report E-Signed By: Jens Magdaleno MD at 12/23/2018 6:09 PM WSN:[id number]
== END ==
LOC: RAD 17:08
PROVIDERS: ATTEND Nurse Practitioner Family
DX: M19.011 Primary osteoarthritis, right shoulder (principal)